=== PATIENT | female | born 1995 | race Caucasian/White ===

== ENCOUNTER 2016-10-10 11:23 | Emergency (ER) | payer MEDICAID, OTHER ==
[~2016-10-10] VITALS: Ht 154.9 cm; Wt 79.5 kg
[~2016-10-10 11:23] MED LIST: NOCURR
[2016-10-10 13:40] VITALS: BP 130/78
[2016-10-10] MEDS ORDERED: IBUPROFEN 800 MG TABLET PO ONE (14:00)
== END 2016-10-10 14:33 | disposition home or self-care (01) ==
LOC: EMS 11:26
DX: N61.0 Mastitis without abscess (principal)
CPT/HCPCS: 99283

== ENCOUNTER 2017-08-17 19:49 | Emergency (ER) | payer MEDICAID ==
[~2017-08-17] VITALS: Ht 154.9 cm; Wt 80.0 kg
[2017-08-17] MEDS ORDERED: PROPARACAINE HCL 0.5% 15 ML OPHTHALMIC SOLUTION OS ONE (21:00)
[2017-08-17] MEDS ORDERED: HYDROCODONE/ACETAMINOPHEN 5-325 MG TABLET PO ONE (21:30)
[2017-08-17] MEDS ORDERED: PETROLATUM,WHITE 5 GM PACKET JELLY TP ONE (21:45)
[2017-08-17 22:00] VITALS: BP 130/90
== END 2017-08-17 22:19 | disposition home or self-care (01) ==
LOC: EMS 19:50
DX: T15.92XA Foreign body on external eye, part unspecified, left eye, initial encounter (principal); T26.42XA Burn of left eye and adnexa, part unspecified, initial encounter; F17.210 Nicotine dependence, cigarettes, uncomplicated; X08.8XXA Exposure to other specified smoke, fire and flames, initial encounter; Y93.89 Activity, other specified; Y92.89 Other specified places as the place of occurrence of the external cause; Y99.8 Other external cause status
CPT/HCPCS: 65205; 99284; 99406

== ENCOUNTER 2021-01-23 11:25 | Emergency (ER) | payer MEDICAID ==
[~2021-01-23] VITALS: Ht 162.6 cm; Wt 75.0 kg
[2021-01-23] MEDS ORDERED: BIRTH CONTROL PO (12:29)
[2021-01-23] MEDS ORDERED: ONDANSETRON HCL 4 MG/2 ML VIAL IVP ONE (12:45)
[2021-01-23] MEDS ORDERED: SODIUM CHLORIDE 0.9% 1,000 ML IV ONE (12:45)
[2021-01-23 12:55] LABS: BASOPHILS % (AUTO) 0.5 % (0.0-2.0); EOSINOPHILS % (AUTO) 0.3 % (1.0-6.0); HEMATOCRIT 42.2 % (36-46); HEMOGLOBIN 13.7 g/dL (12.0-16.0); LYMPHOCYTES % (AUTO) 17.2 % (22.0-44.0); MEAN CORPUSCULAR HEMOGLOBIN 27.7 pg (26.0-34.0); MEAN CORPUSCULAR HGB CONC 32.5 G/dL (31.0-37.0); MEAN CORPUSCULAR VOLUME 85 fL (80-100); MONOCYTES # (AUTO) 0.4 K/uL (0.1-1.0); MONOCYTES % (AUTO) 3.5 % (2.0-9.0); NEUTROPHILS # (AUTO) 8.9 K/uL (1.8-7.7); NEUTROPHILS % (AUTO) 78.5 % (40.0-70.0); PLATELET COUNT (AUTO) 367 K/uL (150-450); RED BLOOD CELL COUNT(AUTO) 4.95 MIL/uL (4.00-5.20); RED CELL DISTRIBUTION WIDTH 13.9 % (11.5-14.5)
[2021-01-23 13:05] LABS: ANION GAP 9 mmol/L (8-16); CALCIUM, TOTAL 9.4 mg/dL (8.8-10.5); CARBON DIOXIDE 26 mmol/L (22-29); CHLORIDE 102 mmol/L (98-107); GLOMERULAR FILTR. RATE CALC > 60 mL/min (>60); GLUCOSE,RANDOM 91 mg/dL (70-110); SODIUM SERUM 137 mmol/L (136-145); UREA NITROGEN, BLOOD 7 mg/dL (7-18)
[2021-01-23 13:16] LABS: ALANINE AMINOTRANSFERASE 21 U/L (12-78); ALBUMIN 3.7 g/dL (3.4-5.0); ALKALINE PHOSPHATASE 108 U/L (46-116); ASPARTATE AMINOTRANSFERASE 12 U/L (15-37); BILIRUBIN,TOTAL 0.5 mg/dL (0.1-1.0); HCG,QUANTITATIVE < 1 mIU/mL (0-6); LIPASE 26 U/L (73-393); TOTAL PROTEIN, SERUM 8.4 g/dL (6.4-8.2)
[2021-01-23 13:30] VITALS: BP 127/73
[2021-01-23 14:36] LABS: APPEARANCE,URINE CLEAR (CLEAR); BILIRUBIN,URINE NEGATIVE (NEGATIVE); GLUCOSE, URINE (UA) NEGATIVE (NEGATIVE); KETONES,URINE TRACE mg/dL (NEGATIVE); LEUKOCYTE ESTERASE ,URINE NEGATIVE (NEGATIVE); NITRATE,URINE NEGATIVE (NEGATIVE); OCCULT BLOOD,URINE SMALL (NEGATIVE); PROTEIN,URINE NEGATIVE (NEGATIVE); UROBILINOGEN,URINE 0.2 mg/dL (<=1.0)
[2021-01-23 14:39] LABS: AMPHET/METH SCREEN,URINE NEGATIVE (NEGATIVE); BARBITURATE SCREEN, URINE NEGATIVE (NEGATIVE); BENZODIAZEPINES SCREEN,URINE NEGATIVE (NEGATIVE); CANNABINOID SCREEN,URINE POSITIVE (NEGATIVE); COCAINE SCREEN,URINE NEGATIVE (NEGATIVE); METHADONE SCREEN, URINE NEGATIVE (NEGATIVE); OPIATE SCREEN,URINE NEGATIVE (NEGATIVE); PHENCYCLIDINE SCREEN,URINE NEGATIVE (NEGATIVE)
[2021-01-23 14:44] LABS: BACTERIA,URINE None Seen /HPF (None Seen); RBC,URINE 0-2 /HPF (0-2); SQUAMOUS EPITHELIAL CELL,UR Few /LPF (None Seen); WBC,URINE 0-2 /HPF (0-5)
== END 2021-01-23 14:48 | disposition home or self-care (01) ==
LOC: EMS 11:40
DX: R11.2 Nausea with vomiting, unspecified (principal); R19.7 Diarrhea, unspecified; R10.13 Epigastric pain; Z79.899 Other long term (current) drug therapy
CPT/HCPCS: 36415; 76700; 80053; 80307; 81001; 83690; 84702; 85025; 93005; 96361; 96374; 99285; G0480; J2405; J7030

== ENCOUNTER 2024-06-02 12:35 | Emergency (ER) | payer MEDICAID, OTHER ==
[~2024-06-02] VITALS: Ht 154.9 cm; Wt 90.9 kg
[~2024-06-02 12:35] MED LIST changes: +BIRTH CONTROL PO; -NOCURR
[2024-06-02 12:47] VITALS: BP 131/69; PULSE 76; RESP 18; TEMP 98.2; O2SAT 98
[2024-06-02] MEDS ORDERED: AMOX-457 PO (13:29)
== END 2024-06-02 14:06 | disposition home or self-care (01) ==
LOC: EMS 12:35
DX: J01.90 Acute sinusitis, unspecified (principal); H66.91 Otitis media, unspecified, right ear; Z79.3 Long term (current) use of hormonal contraceptives
CPT/HCPCS: 99283; Z7502

== ENCOUNTER 2024-08-13 11:02 | Emergency (ER) | payer OTHER ==
[~2024-08-13] VITALS: Ht 154.9 cm; Wt 90.9 kg
[~2024-08-13 11:02] MED LIST changes: +AMOX-457 PO
[2024-08-13 11:08] VITALS: TEMP 98.6
[2024-08-13] MEDS: IBUPROFEN 600 MG TABLET PO ONE (12:19)
[2024-08-13] MEDS ORDERED: IBUP-1492 PO (12:28)
[2024-08-13 13:30] VITALS: BP 137/83; PULSE 89; RESP 18; O2SAT 99
== END 2024-08-13 14:14 | disposition home or self-care (01) ==
LOC: EMS 11:02
DX: S20.211A Contusion of right front wall of thorax, initial encounter (principal); Z79.3 Long term (current) use of hormonal contraceptives; W18.2XXA Fall in (into) shower or empty bathtub, initial encounter; Y93.E1 Activity, personal bathing and showering; Y92.89 Other specified places as the place of occurrence of the external cause; Y99.8 Other external cause status
CPT/HCPCS: 71101; 99283

== ENCOUNTER 2024-08-16 22:06 | Emergency (ER) | payer OTHER ==
[~2024-08-16] VITALS: Ht 154.9 cm; Wt 90.9 kg
[~2024-08-16 22:06] MED LIST changes: -AMOX-457 PO; +IBUP-1492 PO
[2024-08-16 22:19] VITALS: TEMP 98.1
[2024-08-16 22:33] LABS: COVID AG,FIA SOURCE NASAL SWAB
[2024-08-16 22:53] LABS: SARS-COV2 (COVID) ANTIGEN,FIA Negative (Negative)
[2024-08-16 22:54] LABS: INFLUENZA TYPE A NEGATIVE FOR TYPE A (NEGATIVE); INFLUENZA TYPE B NEGATIVE FOR TYPE B (NEGATIVE)
[2024-08-17 00:17] LABS: BASOPHILS % (AUTO) 0.6 % (0.0-2.0); EOSINOPHILS % (AUTO) 0.6 % (1.0-6.0); HEMOGLOBIN 14.1 g/dL (12.0-16.0); LYMPHOCYTES # (AUTO) 2.7 K/uL (1.0-4.8); LYMPHOCYTES % (AUTO) 20.5 % (22.0-44.0); MEAN CORPUSCULAR HEMOGLOBIN 29.3 pg (26.0-34.0); MEAN CORPUSCULAR HGB CONC 32.8 G/dL (31.0-37.0); MEAN CORPUSCULAR VOLUME 89 fL (80-100); MONOCYTES # (AUTO) 0.8 K/uL (0.1-1.0); MONOCYTES % (AUTO) 6.2 % (2.0-9.0); NEUTROPHILS # (AUTO) 9.6 K/uL (1.8-7.7); NEUTROPHILS % (AUTO) 72.1 % (40.0-70.0); PLATELET COUNT (AUTO) 376 K/uL (150-450); RED BLOOD CELL COUNT(AUTO) 4.81 MIL/uL (4.00-5.20); RED CELL DISTRIBUTION WIDTH 13.5 % (11.5-14.5); WHITE BLOOD COUNT (AUTO) 13.3 K/uL (4.5-11.0)
[2024-08-17 00:33] LABS: ANION GAP 7 mmol/L (8-16); CALCIUM, TOTAL 9.2 mg/dL (8.8-10.5); CARBON DIOXIDE 29 mmol/L (22-29); CHLORIDE 103 mmol/L (98-107); CREATININE 0.63 mg/dL (0.60-1.30); GLOMERULAR FILTR. RATE CALC > 60 mL/min (>60); GLUCOSE,RANDOM 101 mg/dL (70-110); POTASSIUM 4.4 mmol/L (3.5-5.1); SODIUM SERUM 139 mmol/L (136-145); UREA NITROGEN, BLOOD 14 mg/dL (7-18)
[2024-08-17 01:36] LABS: ALBUMIN 3.5 g/dL (3.4-5.0); BILIRUBIN,DIRECT 0.1 mg/dL (0.00-0.20); BILIRUBIN,TOTAL 0.3 mg/dL (0.1-1.0); TOTAL PROTEIN, SERUM 7.9 g/dL (6.4-8.2)
[2024-08-17] MEDS ORDERED: ONDA-104 PO (02:52)
[2024-08-17] MEDS: ONDANSETRON 4 MG RAPDIS TABLET PO ONE (03:12)
[2024-08-17 03:14] VITALS: BP 132/80; PULSE 100; RESP 16; O2SAT 96
== END 2024-08-17 03:15 | disposition home or self-care (01) ==
LOC: EMS 22:06
DX: R11.2 Nausea with vomiting, unspecified (principal); Z79.3 Long term (current) use of hormonal contraceptives; Z20.822 Contact with and (suspected) exposure to COVID-19
CPT/HCPCS: 71045; 80048; 80076; 85025; 87804; 99283; 99284; 36415-L1; 36415-TC

== ENCOUNTER 2024-10-01 17:53 | Emergency (ER) | payer OTHER ==
[~2024-10-01] VITALS: Ht 154.9 cm; Wt 81.8 kg
[~2024-10-01 17:53] MED LIST changes: +ONDA-104 PO
[2024-10-01 17:55] VITALS: BP 125/66; PULSE 81; RESP 20; TEMP 98.4; O2SAT 99
[2024-10-01] MEDS ORDERED: CORTSUSP AU (20:28)
[2024-10-01] MEDS ORDERED: IBUP-1554 PO (20:28)
[2024-10-01] MEDS ORDERED: ACET-2080 PO (20:28)
[2024-10-01] MEDS ORDERED: CEPH-558 PO (20:28)
[2024-10-01] MEDS: ACETAMINOPHEN/CODEINE 300-30 MG TABLET PO ONE (20:33)
[2024-10-01] MEDS: CEPHALEXIN MONOHYDRATE 500 MG CAPSULE PO ONE (20:34)
[2024-10-01] MEDS: IBUPROFEN 600 MG TABLET PO ONE (20:34)
== END 2024-10-01 20:41 | disposition home or self-care (01) ==
LOC: EMS 17:54
DX: H66.92 Otitis media, unspecified, left ear (principal); Z79.3 Long term (current) use of hormonal contraceptives
CPT/HCPCS: 99284; Z7502; Z7610

== ENCOUNTER 2024-10-10 11:40 | Emergency (ER) | payer OTHER ==
[~2024-10-10] VITALS: Ht 154.9 cm; Wt 81.0 kg
[~2024-10-10 11:40] MED LIST changes: +ACET-2080 PO; +CEPH-558 PO; +CORTSUSP AU; -IBUP-1492 PO; +IBUP-1554 PO; -ONDA-104 PO
[2024-10-10 11:48] VITALS: TEMP 98.1
[2024-10-10 15:03] VITALS: BP 126/84; PULSE 74; RESP 16; O2SAT 99
[2024-10-10] MEDS ORDERED: CORTSUSP AS (15:10)
[2024-10-10] MEDS ORDERED: HYDR-4062 PO (15:10)
[2024-10-10] MEDS ORDERED: AZIT250T9 PO (15:10)
== END 2024-10-10 15:51 | disposition home or self-care (01) ==
LOC: EMS 11:40
DX: T16.2XXA Foreign body in left ear, initial encounter (principal); H66.92 Otitis media, unspecified, left ear; Z79.3 Long term (current) use of hormonal contraceptives; W44.8XXA Other foreign body entering into or through a natural orifice, initial encounter; Y93.89 Activity, other specified; Y92.89 Other specified places as the place of occurrence of the external cause; Y99.8 Other external cause status
CPT/HCPCS: 69200; 99284; Z7502

== ENCOUNTER 2024-10-25 12:15 | Emergency (ER) | payer OTHER ==
[~2024-10-25] VITALS: Ht 154.9 cm; Wt 90.0 kg
[~2024-10-25 12:15] MED LIST changes: +CORTSUSP AS; +HYDR-4062 PO
[2024-10-25 12:20] VITALS: BP 130/82; PULSE 74; RESP 18; TEMP 98.2; O2SAT 99
[2024-10-25] MEDS ORDERED: CIPR500T10 PO (13:25)
== END 2024-10-25 13:39 | disposition home or self-care (01) ==
LOC: EMS 12:15
DX: H60.392 Other infective otitis externa, left ear (principal)
CPT/HCPCS: 99283; Z7502